=== PATIENT | male | born 1970 | race African-American/Black ===

== ENCOUNTER 2020-05-12 13:45 | Emergency (ER) | payer MEDICAID ==
[~2020-05-12] VITALS: Ht 180.3 cm; Wt 82.0 kg
[2020-05-12 13:53] VITALS: BP 112/73
[2020-05-12] MEDS ORDERED: PHEN300C6 MT (14:09)
[2020-05-12] MEDS ORDERED: PHENYTOIN SODIUM EXTENDED 100MG CAPSULE PO ONE (14:15)
== END 2020-05-12 15:47 | disposition home or self-care (01) ==
LOC: ER 13:45
DX: Z76.0 Encounter for issue of repeat prescription (principal); G40.909 Epilepsy, unspecified, not intractable, without status epilepticus; R03.0 Elevated blood-pressure reading, without diagnosis of hypertension
CPT/HCPCS: 99283

== ENCOUNTER 2020-08-16 21:45 | Emergency (ER) | payer MEDICAID, OTHER ==
[~2020-08-16] VITALS: Ht 182.9 cm; Wt 104.0 kg
[~2020-08-16 21:45] MED LIST: PHEN300C6 MT
[2020-08-16 23:58] VITALS: BP 140/86
== END 2020-08-17 | disposition home or self-care (01) ==
LOC: ER 21:45
DX: S22.32XA Fracture of one rib, left side, initial encounter for closed fracture (principal); M54.5 Low back pain; V49.9XXA Car occupant (driver) (passenger) injured in unspecified traffic accident, initial encounter; Y93.89 Activity, other specified; Y92.488 Other paved roadways as the place of occurrence of the external cause; G40.909 Epilepsy, unspecified, not intractable, without status epilepticus; R03.0 Elevated blood-pressure reading, without diagnosis of hypertension
CPT/HCPCS: 99282; A4565

== ENCOUNTER 2021-10-12 08:09 | Emergency (ER) | payer OTHER ==
[~2021-10-12] VITALS: Ht 182.9 cm; Wt 105.0 kg
[2021-10-12 08:16] VITALS: BP 125/86
[2021-10-12] MEDS ORDERED: IBUP-2029 MT (09:42)
[2021-10-12] MEDS ORDERED: IBUPROFEN 600MG TABLET PO ONE (09:45)
== END 2021-10-12 09:45 | disposition home or self-care (01) ==
LOC: ER 08:09
DX: S62.337A Displaced fracture of neck of fifth metacarpal bone, left hand, initial encounter for closed fracture (principal); Y04.0XXA Assault by unarmed brawl or fight, initial encounter; Y93.89 Activity, other specified; Y92.89 Other specified places as the place of occurrence of the external cause; G40.909 Epilepsy, unspecified, not intractable, without status epilepticus
CPT/HCPCS: 73110; 73130; 99284